=== PATIENT | female | born 1955 | race Caucasian/White ===

== ENCOUNTER 2017-01-03 08:48 | Inpatient (IN) | payer OTHER ==
[2017-01-03] VITALS (7 sets, daily range): BP systolic 129–155; BP diastolic 70–108
[~2017-01-03] VITALS: Ht 162.5 cm; Wt 79.9 kg
--- NOTE | ~2017-01-03 | PR ---
[place], [place] PROGRESS NOTE NAME: MICHELE RAMOS UNIT #: [id number] ROOM: 528 DOCTOR: PETRA CUMMINGS MD BIRTHDATE: [birth year] DOS: 01/05/2017 SUBJECTIVE: The patient was seen and examined. She is awake and alert. She is on room air. She feels well. She denies shortness of breath, nausea or vomiting. She is eating lunch. She states she is being discharged to home. PHYSICAL EXAMINATION: VITAL SIGNS: Temperature 98.2, pulse 76, respiratory rate 18, blood pressure 150/72. HEENT: Shows no JVD. LUNGS: Clear. HEART: Normal S1, S2. No rub, thrill or gallop. ABDOMEN: Soft, nontender. There is no organomegaly. EXTREMITIES: Had no edema. SKIN: Showed no rash. LABORATORY DATA: Sodium 135, potassium 3.5, CO2 of 20, BUN 11, creatinine 1.4, glucose of 90, calcium 7.3, phosphorus 3.1, magnesium 2.0. ASSESSMENT AND PLAN: 1. Acute kidney injury, which appears to be improving. Encourage oral intake. Replace electrolytes as needed. 2. Hypertension. The patient can continue/resume her home medications. 3. Vitamin D deficiency. Continue oral vitamin D. 4. Mild anemia. H and H are stable. 5. Diverticulitis. The patient has been on antibiotics. From renal standpoint, she is stable for discharge. We will sign off at this point. Please call with any questions. PETRA CUMMINGS MD CM:PNTRANS [phone] PETRA CUMMINGS MD 01/05/17 1322 interface
[~2017-01-03 08:48] MED LIST: ALBUTEROL0.09 MG/A2 INH; ALDACTONE50 MG PO; ANTIVERT25 MG PO; CELEBREX200 MG PO; CIPROFLOXACIN500 MG PO; FLEXERIL10 MG PO; FLONASE ALLERG9.9 ML NAS; HYDROCODONE BIT1 T11 PO; LEVAQUIN750 MG PO; LISINOPRIL-HCT1 EACH PO; Lopressor25 MG PO; METRONIDAZOLE500 MG PO; NAPROSYN500 MG PO; NOVAPLUS V0.09 MG/Ac IH; OMEPRAZOLE D/R20 MG PO; ONDANSETRON2 MG/ML IV; ONDANSETRON2 MG/ML PO; PREDNICOT20 MG PO; PREDNISONE20 MG PO; PRILOSEC10 MG PO; PROAIR HFA8.5 GM INH; VITAMIN B121000 MCG PO; VITAMIN D31000 UNIT PO; ZESTRIL40 MG PO; [UNRECOGNIZED DRUG - REMARK]
[2017-01-03 09:21] LABS: BASO % 0.5 % (0.0-1.0); EOS # 0.3 10*3/uL (0.0-0.4); EOS % 3.4 % (1.0-4.0); LYMPH # 1.2 10*3/uL (1.3-4.4); LYMPH % 16.5 % (27.0-41.0); MEAN CELL VOLUME 89.4 fl (81.0-99.0); MEAN CORPUSCULAR HGB 30.6 pg (27.0-31.0); MEAN CORPUSCULAR HGB CONC 34.2 g/dl (33.0-37.0); MEAN PLATELET VOLUME 8.6 fl (9.6-12.3); MONO # 0.7 10*3/uL (0.1-1.0); MONO % 9.1 % (3.0-9.0); NEUT # 5.1 10*3/uL (2.3-7.9); NEUT % 68.5 % (47.0-73.0); PLATELET COUNT AUTOMATED 262 10*3/uL (130-400); RED BLOOD COUNT 4.25 10*6/uL (4.10-5.10); RED CELL DISTRI WIDTH 12.6 % (0-14.5); WHITE BLOOD COUNT 7.4 10*3/uL (4.8-10.8)
--- NOTE | 2017-01-03 09:27 | NUR ---
PATIENT GIVEN A URINE CUP AND A STOOL SAMPLE CUP AND INSTRUCTED ON HOW TO PROVIDE THE SAMPLES, PATIENT STATES THAT SHE DOES NOT BELIEVE SHE CAN GO NOW, CALL LIGHT IN REACH OF THE PATIENT, CONTINUING TO MONITOR THE PATIENT. AGUSTINA FISH
[2017-01-03 09:38] LABS: ALBUMIN 3.1 gm/dl (3.1-4.5); CREATININE 2.29 mg/dL (0.55-1.02); POTASSIUM 3.1 mmol/L (3.5-5.1); TOTAL PROTEIN 7.8 gm/dL (6.4-8.2)
--- NOTE | 2017-01-03 10:08 | NUR ---
PATIENT TAKEN TO ROOM 502-2 PLACED IN THE BED AND CARE TRANSFERRED TO JANEEN NORMAN RN. AGUSTINA VERNON MADE AWARE OF THE PATIENT'S URINE NEEDING TO BE OBTAINED AND THE PATIENT'S STOOL SAMPLE. AGUSTINA FISH
[2017-01-03] MEDS ORDERED: IRON325 M3 PO (13:29)
[2017-01-03] MEDS ORDERED: SINGULAIR10 M1 PO (13:29)
[2017-01-03] MEDS ORDERED: LOPRESSOR50 M1 PO (13:32)
[2017-01-03] MEDS ORDERED: LEFLUNOMIDE10 M1 PO (13:36)
[2017-01-03] MEDS ORDERED: PREDNISONE5 MG PO (13:39)
[2017-01-03] MEDS ORDERED: LOPRESSOR25 MG PO (13:47)
[2017-01-03] MEDS ORDERED: FLOVENT HFA12 G1 INH (14:01)
--- NOTE | 2017-01-03 14:02 | NUR ---
UPDATED MED LIST WITH INFORMATION FROM PATIENT AND PHARMACY.
--- NOTE | 2017-01-03 14:46 | NUR ---
Time: 1129 A 61 year old FEMALE admitted to 5E under services of TOMASA NIETO DO. Pt. arrived via stretcher from ER. Chief complaint: DIARRHEA FOR 3 WEEKS. JOHN SIMS
--- NOTE | 2017-01-03 18:50 | NUR ---
DR. BIANCHI'S ANSWERING SERVICE NOTIFIED OF CONSULT.
[2017-01-04] VITALS: BP 126/70
--- NOTE | 2017-01-04 01:52 | NUR ---
24 HR chart check completed.
--- NOTE | 2017-01-04 07:53 | NUR ---
Shift chart check completed.
[2017-01-04 08:00] VITALS: BP 136/73
[2017-01-04 08:11] LABS: HEMATOCRIT 32.5 % (37.0-47.0); MEAN CORPUSCULAR HGB 30.5 pg (27.0-31.0); MEAN CORPUSCULAR HGB CONC 33.8 g/dl (33.0-37.0); MEAN PLATELET VOLUME 8.7 fl (9.6-12.3); PLATELET COUNT AUTOMATED 242 10*3/uL (130-400); RED BLOOD COUNT 3.61 10*6/uL (4.10-5.10); RED CELL DISTRI WIDTH 12.6 % (0-14.5); WHITE BLOOD COUNT 6.7 10*3/uL (4.8-10.8)
[2017-01-04 08:33] LABS: TOTAL CELLS COUNTED 100 #CELLS
[2017-01-04 08:34] LABS: PLATELET SUFFICIENCY NORMAL (NORMAL)
[2017-01-04 08:55] LABS: ALBUMIN 2.7 gm/dl (3.1-4.5); POTASSIUM 3.3 mmol/L (3.5-5.1)
[2017-01-04 09:00] LABS: VITAMIN D, 25-HYDROXY 44.8 ng/mL (30-100)
--- NOTE | 2017-01-04 09:00 | NUR ---
Religious Education Teacher in to talk to patient. Patient states lives at home with alone. There are few steps in the home. Physician: connie betancourt Pharmacy: Home health services: none Patient's level of ADLs: INDEPENDENT Patient has working utilities: all working DME: none Follow-up physician's appointment after d/c: will be made by hospitalist nurse director upon discharge Does patient want to access PORTAL?: no Discharge plan discussed with patient, patient lives at home alone, she states she is independent in adls and ambulation, drives, patient states she will be going back home and denies any home needs. LIS FLEMING\
[2017-01-04 09:05] LABS: CREATININE 1.68 mg/dL (0.55-1.02); FREE T4 1.31 ng/dl (0.76-1.46); PHOSPHOROUS 2.1 mg/dL (2.5-4.9); THYROID STIM HORMONE (HS) 0.253 uIU/ml (0.358-4.75); TOTAL PROTEIN 6.6 gm/dL (6.4-8.2)
--- NOTE | 2017-01-04 09:12 | NUR ---
DR. LAWRENCE NOTIFIED OF PATIENTS CALCIUM OF 6.8. NO NEW ORDERS
[2017-01-04 12:00] VITALS: BP 109/66
[2017-01-04 16:00] VITALS: BP 117/70
--- NOTE | 2017-01-04 17:26 | NUR ---
TWO FAILED ATTEMPTS ON IV SITE IN RIGHT FOREARM. ADDITIONAL STAFF MEMBER CALLED TO FIND ANOTHER SITE.
--- NOTE | 2017-01-04 17:28 | NUR ---
PATIENT REQUESTED NICOTROL INHALER, CALLED DR. CORDERO. SEE NEW ORDERS.
--- NOTE | 2017-01-04 17:42 | NUR ---
3 MORE ATTEMPTS BY 2 RN'S. 22 G PLACED IN LEFT FOREARM. PATIENT TOLERATED VERY WELL.
--- NOTE | 2017-01-04 18:42 | NUR ---
PATIENT C/O 6-8 LOOSE BOWEL MOVEMENTS BETWEEN 7A-7P. TOLERATING SOFT DIET WELL.
[2017-01-04 20:00] VITALS: BP 106/61
--- NOTE | 2017-01-04 20:14 | NUR ---
PATIENT IS LYING IN BED STILL HAVING COMPLAINTS OF DIARRHEA. PATIENT DENIES ANY PAIN, DISCOMFORT, OR SOB. PATIENT VERBALIZES THAT THEIR SYMPTOMS HAVE IMPROVED THROUGHOUT THE DAY AND STOOLS ARE BECOMING MORE FORMED, BUT STILL LOOSE. CALL LIGHT SYSTEM WAS REINFORCED. SEE SHIFT ASSESSMENT.
--- NOTE | 2017-01-04 21:52 | NUR ---
PATIENT IS RESTING COMFORTABLY. PATIENT DENIES ANY ABD CRAMPING OR EPISODES OF DIARRHEA AT THIS TIME. CALL LIGHT IS WITHIN REACH. WILL CONTINUE TO MONITOR.
[2017-01-05] VITALS: BP 108/64
[2017-01-05 05:56] LABS: BILIRUBIN NEGATIVE (NEGATIVE); BLOOD NEGATIVE (NEGATIVE); CLARITY SL CLOUDY (CLEAR); COLOR YELLOW (YELLOW); GLUCOSE NEGATIVE (NEGATIVE); KETONE NEGATIVE (NEGATIVE); LEUKO ESTERASE NEGATIVE (NEGATIVE); NITRITE NEGATIVE (NEGATIVE); PH 5.5 (5.0-9.0); SPECIFIC GRAVITY 1.025 (1.005-1.030); UROBILINOGEN 0.2 E.U./dl (0.2-1.0)
[2017-01-05 06:15] LABS: BACTERIA TRACE; MUCOUS TRACE
--- NOTE | 2017-01-05 06:19 | NUR ---
PATIENT IS RESTING COMFORTABLY IN BED. PATIENT WAS ABLE TO SLEEP THROUGHOUT THE NIGHT. PT REPORTS HAVING A FEW EPISODES OF DIARRHEA THROUGHOUT THE NIGHT, BUT DENIES ANY N/V. PATIENT CAN AMBULATE INDEPENDENTLY AND HAS BEEN COOPERATIVE THROUGHOUT THE NIGHT. CALL LIGHT IS WITHIN REACH. PATIENT HAS NO FURTHER REQUESTS AT THIS TIME.
[2017-01-05 07:03] LABS: POTASSIUM 3.5 mmol/L (3.5-5.1)
[2017-01-05 07:09] LABS: CREATININE 1.43 mg/dL (0.55-1.02); PHOSPHOROUS 3.1 mg/dL (2.5-4.9)
--- NOTE | 2017-01-05 07:49 | NUR ---
Shift chart check completed.
--- NOTE | 2017-01-05 07:59 | NUR ---
PT IS REFUSING BREATHING TXS. SHE STATES THAT SHE DOES NOT TAKE THEM AT HOME AND DOES NOT FEEL LIKE SHE NEEDS THEM HERE. LUNGS SOUND DIMINSHED BUT CLEAR. SPO2 IS 96% ON ROOM AIR.
[2017-01-05 08:00] VITALS: BP 150/72
[2017-01-05] MEDS ORDERED: 'CIPRO500 M1 PO (11:50)
[2017-01-05] MEDS ORDERED: FLAGYL500 MG PO (11:50)
--- NOTE | 2017-01-05 14:28 | NUR ---
Discharge instructions reviewed with patient/family. Patient receptive and verbalizes understanding. Follow-up care arranged. Written instructions given to patient/family. Patient ambulated from unit with all of her belongings and family members. DEBORAH PARK
== END 2017-01-05 14:28 | disposition home or self-care (01) | DRG 871 ==
LOC: ED 08:48 → 5E 09:55 → EDHOLD 09:55 → 5E 10:03
PROVIDERS: Emergency Medicine; Internal Medicine; Student in an Organized Health Care Education/Training Program; ADMIT Internal Medicine
DX: A41.9 Sepsis, unspecified organism (principal); N17.0 Acute kidney failure with tubular necrosis; E83.39 Other disorders of phosphorus metabolism; K57.32 Diverticulitis of large intestine without perforation or abscess without bleeding; E83.42 Hypomagnesemia; K50.00 Crohn's disease of small intestine without complications; R65.20 Severe sepsis without septic shock; E86.0 Dehydration; J44.9 Chronic obstructive pulmonary disease, unspecified; D72.810 Lymphocytopenia; E87.6 Hypokalemia; M06.9 Rheumatoid arthritis, unspecified; I10 Essential (primary) hypertension; E78.5 Hyperlipidemia, unspecified; K21.9 Gastro-esophageal reflux disease without esophagitis; K52.9 Noninfective gastroenteritis and colitis, unspecified; F17.210 Nicotine dependence, cigarettes, uncomplicated; D64.9 Anemia, unspecified; J30.2 Other seasonal allergic rhinitis; E53.8 Deficiency of other specified B group vitamins; Z88.2 Allergy status to sulfonamides; Z79.899 Other long term (current) drug therapy; Z71.6 Tobacco abuse counseling; Z98.51 Tubal ligation status; Z87.11 Personal history of peptic ulcer disease; Z90.49 Acquired absence of other specified parts of digestive tract; Z82.0 Family history of epilepsy and other diseases of the nervous system; Z82.49 Family history of ischemic heart disease and other diseases of the circulatory system; Z79.51 Long term (current) use of inhaled steroids

== ENCOUNTER → 2017-03-19 | Outpatient (CLI) | payer OTHER ==
[~2017-03-19] MED LIST changes: +'CIPRO500 M1 PO; +FLAGYL500 MG PO; +FLOVENT HFA12 G1 INH; +IRON325 M3 PO; +LEFLUNOMIDE10 M1 PO; +LOPRESSOR25 MG PO; +LOPRESSOR50 M1 PO; +PREDNISONE5 MG PO; +SINGULAIR10 M1 PO
[2017-03-21 17:07] LABS: FATS, NEUTRAL Normal (.); FATS, TOTAL Normal (.)
== END | disposition home or self-care (01) ==
LOC: LAB 12:40
PROVIDERS: Nurse Practitioner Family
DX: R19.7 Diarrhea, unspecified (principal)

== ENCOUNTER 2018-05-13 09:59 | Inpatient (IN) | payer OTHER ==
[~2018-05-13] VITALS: Ht 162.5 cm; Wt 86.9 kg
[2018-05-13 10:02] VITALS: BP 91/67
[2018-05-13 10:15] VITALS: BP 98/50
[2018-05-13 10:38] LABS: BASO % 0.1 % (0.0-1.0); EOS % 0.5 % (1.0-4.0); HEMATOCRIT 37.2 % (37.0-47.0); HEMOGLOBIN 13.1 g/dl (12.0-16.0); LYMPH # 0.7 10*3/uL (1.3-4.4); LYMPH % 8.6 % (27.0-41.0); MEAN CELL VOLUME 87.5 fl (81.0-99.0); MEAN CORPUSCULAR HGB 30.8 pg (27.0-31.0); MEAN CORPUSCULAR HGB CONC 35.2 g/dl (33.0-37.0); MEAN PLATELET VOLUME 8.7 fl (9.6-12.3); MONO # 0.8 10*3/uL (0.1-1.0); NEUT # 6.6 10*3/uL (2.3-7.9); NEUT % 80.3 % (47.0-73.0); PLATELET COUNT AUTOMATED 164 10*3/uL (130-400); RED BLOOD COUNT 4.25 10*6/uL (4.10-5.10); RED CELL DISTRI WIDTH 13.6 % (0-14.5); WHITE BLOOD COUNT 8.2 10*3/uL (4.8-10.8)
--- NOTE | 2018-05-13 11:03 | NUR ---
PT UNWILLING TO ATTEMPT TO PROVIDE URINE SPECIMEN AND REQUESTS PAIN MEDICATION FOR ARTHRITIS. PROVIDER MADE AWARE.
[2018-05-13 11:04] VITALS: BP 96/48
[2018-05-13 11:08] LABS: ALBUMIN 3.1 gm/dl (3.1-4.5); CREATININE 6.83 mg/dL (0.55-1.02); POTASSIUM 3.7 mmol/L (3.5-5.1); TOTAL PROTEIN 7.2 gm/dL (6.4-8.2)
[2018-05-13 11:46] LABS: BILIRUBIN NEGATIVE (NEGATIVE); BLOOD NEGATIVE (NEGATIVE); CLARITY SL CLOUDY (CLEAR); COLOR YELLOW (YELLOW); GLUCOSE NEGATIVE (NEGATIVE); KETONE NEGATIVE (NEGATIVE); LEUKO ESTERASE NEGATIVE (NEGATIVE); NITRITE NEGATIVE (NEGATIVE); PH 5.5 (5.0-9.0); UROBILINOGEN 0.2 E.U./dl (0.2-1.0)
[2018-05-13 12:05] LABS: BACTERIA 3+
--- NOTE | 2018-05-13 12:40 | NUR ---
A 62, admitted to , under the services of ARI James DO with a diagnosis of Acute Renal Failure. Chief complaint is General Weakness. Patient arrived via stretcher from ER. Monitor applied. Initial assessment completed. Vital signs taken and recorded. ARI JAMES DO notified of admission to the unit. Orders received. See assessment for past medical history, medications and allergies. Patient and/or family oriented to unit. [address] visitation policy reviewed. Clothing/patient valuable form completed. DEBORAH PARK
[2018-05-13] MEDS ORDERED: CLARITIN10 MG PO (13:15)
--- NOTE | 2018-05-13 13:55 | NUR ---
[place] given per patient request for c/o arthritic pain and generalized "all over acheyness." Will monitor.
--- NOTE | 2018-05-13 14:04 | NUR ---
Left a message with Candy at Dr. Olivera office regarding consult for Acute Renal Failure. Physician to follow up at bedside.
--- NOTE | 2018-05-13 14:38 | NUR ---
Notified Dr. Gill that patients med rec is completed and that patients CT scan results are up.
[2018-05-13 16:00] VITALS: BP 90/43
--- NOTE | 2018-05-13 18:43 | NUR ---
PATIENT MEDICATED WITH NORCO AT THIS TIME PER ORDER FOR COMPLAINTS OF PAIN IN JOINTS T/O BODY 10/18. WILL MONITOR.
[2018-05-13 20:00] VITALS: BP 96/48
--- NOTE | 2018-05-13 20:00 | NUR ---
PER PATIENT, PRN MED WAS EFFECTIVE FOR PAIN. NO NEEDS AT THIS TIME.
[2018-05-14] VITALS: BP 88/48
[2018-05-14 06:10] LABS: BASO % 0.2 % (0.0-1.0); EOS % 0.1 % (1.0-4.0); HEMATOCRIT 34.5 % (37.0-47.0); HEMOGLOBIN 11.6 g/dl (12.0-16.0); LYMPH % 10.5 % (27.0-41.0); MEAN CELL VOLUME 89.4 fl (81.0-99.0); MEAN CORPUSCULAR HGB 30.1 pg (27.0-31.0); MEAN CORPUSCULAR HGB CONC 33.6 g/dl (33.0-37.0); MEAN PLATELET VOLUME 9.4 fl (9.6-12.3); MONO # 0.7 10*3/uL (0.1-1.0); MONO % 7.3 % (3.0-9.0); NEUT # 7.7 10*3/uL (2.3-7.9); NEUT % 81.5 % (47.0-73.0); PLATELET COUNT AUTOMATED 173 10*3/uL (130-400); RED BLOOD COUNT 3.86 10*6/uL (4.10-5.10); RED CELL DISTRI WIDTH 13.7 % (0-14.5); WHITE BLOOD COUNT 9.4 10*3/uL (4.8-10.8)
[2018-05-14 06:31] LABS: ALBUMIN 2.6 gm/dl (3.1-4.5); CREATININE 4.39 mg/dL (0.55-1.02); PHOSPHOROUS 5.6 mg/dL (2.5-4.9); POTASSIUM 3.9 mmol/L (3.5-5.1); TOTAL PROTEIN 6.6 gm/dL (6.4-8.2)
[2018-05-14 06:37] LABS: THYROID STIM HORMONE (HS) 0.162 uIU/ml (0.358-4.75)
[2018-05-14 06:51] LABS: ACT PARTIAL THROMBO TIME 30.5 SECONDS (20.8-31.5)
[2018-05-14 07:28] LABS: VITAMIN D, 25-HYDROXY 33.8 ng/mL (30-100)
[2018-05-14 08:00] VITALS: BP 82/42
[2018-05-14 08:50] VITALS: BP 86/44
--- NOTE | 2018-05-14 08:51 | NUR ---
MANUAL BLOOD PRESSURE 86/44, PT IS ASYMPTOMATIC. NOTIFIED DR. Colleen MURPHY
--- NOTE | 2018-05-14 09:00 | NUR ---
Roll On Worker in to talk to patient. Patient states lives at home with alone. There are few steps in the home. Physician: connie betancourt Pharmacy: [facility] health services: none Patient's level of ADLs: INDEPENDENT Patient has working utilities: all working DME: none Follow-up physician's appointment after d/c: will be made by hospitalist nurse director upon discharge Does patient want to access PORTAL?: no Discharge plan discussed with patient, patient lives at home alone, she is independent in adls and ambualtion, works, drives, patient states she will be going home when able and denies any home needs. LIS FLEMING
--- NOTE | 2018-05-14 10:45 | NUR ---
PHYSICAL THERAPY PAtient reports She has no PT needs. PAtient reports She is 100 % (I) WITH ALL MOBILITY AND FEELING 100 % BETTER THEN UPON ADMITT. Thank you for this referral. Awilda Reddy,PT
[2018-05-14 12:00] VITALS: BP 86/42
[2018-05-14 16:00] VITALS: BP 131/50
[2018-05-14 20:00] VITALS: BP 88/46
[2018-05-15] VITALS: BP 92/76
[2018-05-15 06:28] LABS: BASO % 0.2 % (0.0-1.0); EOS # 0.1 10*3/uL (0.0-0.4); EOS % 0.9 % (1.0-4.0); HEMATOCRIT 32.4 % (37.0-47.0); HEMOGLOBIN 10.6 g/dl (12.0-16.0); LYMPH # 0.9 10*3/uL (1.3-4.4); LYMPH % 15.5 % (27.0-41.0); MEAN CELL VOLUME 90.3 fl (81.0-99.0); MEAN CORPUSCULAR HGB 29.5 pg (27.0-31.0); MEAN CORPUSCULAR HGB CONC 32.7 g/dl (33.0-37.0); MEAN PLATELET VOLUME 9.4 fl (9.6-12.3); MONO # 0.4 10*3/uL (0.1-1.0); MONO % 7.6 % (3.0-9.0); NEUT # 4.2 10*3/uL (2.3-7.9); NEUT % 75.4 % (47.0-73.0); PLATELET COUNT AUTOMATED 157 10*3/uL (130-400); RED BLOOD COUNT 3.59 10*6/uL (4.10-5.10); RED CELL DISTRI WIDTH 14.1 % (0-14.5); WHITE BLOOD COUNT 5.5 10*3/uL (4.8-10.8)
[2018-05-15 06:57] LABS: ALBUMIN 2.3 gm/dl (3.1-4.5); CREATININE 2.47 mg/dL (0.55-1.02); PHOSPHOROUS 4.5 mg/dL (2.5-4.9); POTASSIUM 3.6 mmol/L (3.5-5.1); TOTAL PROTEIN 6.4 gm/dL (6.4-8.2)
[2018-05-15 08:00] VITALS: BP 129/77
--- NOTE | 2018-05-15 09:00 | NUR ---
case management visits with patient, patient states she will be going home when able and denies any home needs
[2018-05-15 12:00] VITALS: BP 140/67
[2018-05-15] MEDS ORDERED: PREDNISONE5 MG PO (12:49)
[2018-05-15] MEDS ORDERED: B12100 MC1 PO (12:49)
--- NOTE | 2018-05-15 15:10 | NUR ---
Discharge instructions reviewed with patient/family. Patient receptive and verbalizes understanding. Follow-up care arranged. Written instructions given to patient/family. [place] DISCONTINUED. SCRIPT GIVEN. PATIENT AMBULATORY OFF FLOOR. LOUIE SCHULTZ
== END 2018-05-15 15:40 | disposition home or self-care (01) | DRG 682 ==
LOC: ED 09:59 → 4E 12:06 → EDHOLD 12:06 → 4E 12:29
PROVIDERS: Internal Medicine; Nurse Practitioner Family; ADMIT Internal Medicine
DX: N17.0 Acute kidney failure with tubular necrosis (principal); E43 Unspecified severe protein-calorie malnutrition; E87.1 Hypo-osmolality and hyponatremia; E87.2 Acidosis; E86.0 Dehydration; I95.9 Hypotension, unspecified; R73.9 Hyperglycemia, unspecified; R82.71 Bacteriuria; Z71.6 Tobacco abuse counseling; I10 Essential (primary) hypertension; M06.9 Rheumatoid arthritis, unspecified; K27.9 Peptic ulcer, site unspecified, unspecified as acute or chronic, without hemorrhage or perforation; K57.90 Diverticulosis of intestine, part unspecified, without perforation or abscess without bleeding; E78.5 Hyperlipidemia, unspecified; E53.8 Deficiency of other specified B group vitamins; N28.1 Cyst of kidney, acquired; K21.9 Gastro-esophageal reflux disease without esophagitis; J30.2 Other seasonal allergic rhinitis; F17.210 Nicotine dependence, cigarettes, uncomplicated; J44.9 Chronic obstructive pulmonary disease, unspecified; K58.9 Irritable bowel syndrome, unspecified; R94.6 Abnormal results of thyroid function studies; E66.9 Obesity, unspecified; D64.9 Anemia, unspecified; E83.42 Hypomagnesemia; E83.39 Other disorders of phosphorus metabolism; E87.8 Other disorders of electrolyte and fluid balance, not elsewhere classified; Z88.2 Allergy status to sulfonamides; Z98.51 Tubal ligation status; Z90.49 Acquired absence of other specified parts of digestive tract; Z82.49 Family history of ischemic heart disease and other diseases of the circulatory system; Z80.9 Family history of malignant neoplasm, unspecified; Z81.1 Family history of alcohol abuse and dependence; Z81.8 Family history of other mental and behavioral disorders; Z79.899 Other long term (current) drug therapy; Z68.32 Body mass index [BMI] 32.0-32.9, adult

== ENCOUNTER → 2018-05-22 | Outpatient (CLI) | payer OTHER ==
[~2018-05-22] MED LIST changes: +B12100 MC1 PO; +CLARITIN10 MG PO
[2018-05-22 14:44] LABS: ALBUMIN 3.2 gm/dl (3.1-4.5); CREATININE 1.5 mg/dL (0.55-1.02); PHOSPHOROUS 3.1 mg/dL (2.5-4.9); POTASSIUM 3.8 mmol/L (3.5-5.1)
== END | disposition home or self-care (01) ==
LOC: LAB 13:49
PROVIDERS: Internal Medicine
DX: N17.0 Acute kidney failure with tubular necrosis (principal)

== ENCOUNTER 2018-11-28 18:31 | Emergency (ER) | payer OTHER ==
[~2018-11-28] VITALS: Ht 160 cm; Wt 88.5 kg
[2018-11-28 18:31] VITALS: BP 141/71
[2018-11-28] MEDS ORDERED: MEDROL DOSEPAK4 MG PO (20:31)
[2018-11-28] MEDS ORDERED: DOXYCYCLINE100 M3 PO (20:31)
== END 2018-11-28 20:43 | disposition home or self-care (01) ==
LOC: ED 18:31
DX: J18.9 Pneumonia, unspecified organism (principal); M06.9 Rheumatoid arthritis, unspecified; J44.9 Chronic obstructive pulmonary disease, unspecified; K21.9 Gastro-esophageal reflux disease without esophagitis; E66.9 Obesity, unspecified; I10 Essential (primary) hypertension; F17.210 Nicotine dependence, cigarettes, uncomplicated; Z88.2 Allergy status to sulfonamides; Z79.899 Other long term (current) drug therapy

== ENCOUNTER 2019-02-22 12:24 | Emergency (ER) | payer OTHER ==
[~2019-02-22] VITALS: Ht 162.5 cm; Wt 88.9 kg
[~2019-02-22 12:24] MED LIST changes: +DOXYCYCLINE100 M3 PO; +MEDROL DOSEPAK4 MG PO
[2019-02-22 12:26] VITALS: BP 186/87
[2019-02-22 13:09] LABS: BILIRUBIN NEGATIVE (NEGATIVE); BLOOD NEGATIVE (NEGATIVE); CLARITY SL CLOUDY (CLEAR); COLOR YELLOW (YELLOW); GLUCOSE NEGATIVE (NEGATIVE); KETONE NEGATIVE (NEGATIVE); LEUKO ESTERASE NEGATIVE (NEGATIVE); NITRITE NEGATIVE (NEGATIVE); PH 6.5 (5.0-9.0); SPECIFIC GRAVITY <= 1.005 (1.005-1.030); UROBILINOGEN 0.2 E.U./dl (0.2-1.0)
[2019-02-22 13:15] LABS: MUCOUS 1+; WBC 0-2 wbc/hpf (0-5)
[2019-02-22 13:19] LABS: BASO % 0.4 % (0.0-1.0); EOS # 0.2 10*3/uL (0.0-0.4); EOS % 3.5 % (1.0-4.0); HEMATOCRIT 39.9 % (37.0-47.0); LYMPH # 0.6 10*3/uL (1.3-4.4); LYMPH % 10.4 % (27.0-41.0); MEAN CELL VOLUME 93.7 fl (81.0-99.0); MEAN CORPUSCULAR HGB 30.5 pg (27.0-31.0); MEAN CORPUSCULAR HGB CONC 32.6 g/dl (33.0-37.0); MEAN PLATELET VOLUME 8.4 fl (9.6-12.3); MONO # 0.5 10*3/uL (0.1-1.0); MONO % 8.6 % (3.0-9.0); NEUT # 4.3 10*3/uL (2.3-7.9); NEUT % 76.2 % (47.0-73.0); PLATELET COUNT AUTOMATED 212 10*3/uL (130-400); RED BLOOD COUNT 4.26 10*6/uL (4.10-5.10); RED CELL DISTRI WIDTH 12.9 % (0-14.5); WHITE BLOOD COUNT 5.7 10*3/uL (4.8-10.8)
[2019-02-22 13:30] LABS: INTERNATIONAL NORM RATIO 0.9 (2.0-3.5)
[2019-02-22 13:47] LABS: ALBUMIN 3.2 gm/dl (3.1-4.5); ALKALINE PHOSPHATASE 70 U/L (45-117); BUN 18 mg/dl (7-24); CHLORIDE 107 mmol/L (98-107); CREATININE 1.59 mg/dL (0.55-1.02); POTASSIUM 3.7 mmol/L (3.5-5.1); SGOT/AST 17 IU/L (3-35); SGPT/ALT 20 U/L (12-78); SODIUM 139 mmol/L (136-145)
[2019-02-22 13:51] LABS: TROPONIN I < 0.015 ng/ml (<0.045)
[2019-02-22] MEDS ORDERED: TYLENOL325 M1 PO (15:18)
[2019-02-22] MEDS ORDERED: AUGMENTIN 875875 MG PO (15:18)
[2019-02-22] MEDS ORDERED: POLYSPORIN OINT15 GM T (15:18)
[2019-02-22] MEDS ORDERED: CYCLOBENZAPRINE10 MG PO (15:18)
== END 2019-02-22 15:45 | disposition home or self-care (01) ==
LOC: ED 12:24
PROVIDERS: Emergency Medicine
DX: S51.002A Unspecified open wound of left elbow, initial encounter (principal); M54.41 Lumbago with sciatica, right side; I12.9 Hypertensive chronic kidney disease with stage 1 through stage 4 chronic kidney disease, or unspecified chronic kidney disease; N18.3 Chronic kidney disease, stage 3 (moderate); L03.114 Cellulitis of left upper limb; M54.2 Cervicalgia; R51 Headache; E66.9 Obesity, unspecified; M06.9 Rheumatoid arthritis, unspecified; J44.9 Chronic obstructive pulmonary disease, unspecified; K21.9 Gastro-esophageal reflux disease without esophagitis; E78.5 Hyperlipidemia, unspecified; F17.210 Nicotine dependence, cigarettes, uncomplicated; Z88.2 Allergy status to sulfonamides; Z88.8 Allergy status to other drugs, medicaments and biological substances; Z79.899 Other long term (current) drug therapy; Z79.2 Long term (current) use of antibiotics; Z68.30 Body mass index [BMI] 30.0-30.9, adult; X58.XXXA Exposure to other specified factors, initial encounter; Y93.89 Activity, other specified; Y92.89 Other specified places as the place of occurrence of the external cause; Y99.8 Other external cause status

== ENCOUNTER 2020-07-29 11:57 | Emergency (ER) | payer OTHER ==
[~2020-07-29] VITALS: Ht 160 cm; Wt 84.8 kg
[~2020-07-29 11:57] MED LIST changes: +AUGMENTIN 875875 MG PO; +CYCLOBENZAPRINE10 MG PO; +POLYSPORIN OINT15 GM T; +TYLENOL325 M1 PO
[2020-07-29] MEDS ORDERED: METHOCARBAMOL500 M1 PO (15:48)
[2020-07-31] MEDS ORDERED: TRIAMTERENE-HC1 EACH PO (18:11)
[2020-08-01] MEDS ORDERED: OMNICEF300 MG PO (13:25)
[2020-08-01] MEDS ORDERED: ZITHROMAX500 MG PO (13:25)
[2020-08-01] MEDS ORDERED: PREDNISONE10 MG PO (13:25)
[2020-08-01] MEDS ORDERED: COLCHICINE0.6 M1 PO (13:26)
[2020-08-01] MEDS ORDERED: PREDNISONE5 MG PO (13:28)
== END 2020-07-29 16:48 | disposition home or self-care (01) ==
LOC: ED 11:57
DX: S29.012A Strain of muscle and tendon of back wall of thorax, initial encounter (principal); F17.200 Nicotine dependence, unspecified, uncomplicated; Z88.2 Allergy status to sulfonamides; Z88.8 Allergy status to other drugs, medicaments and biological substances; Z79.899 Other long term (current) drug therapy; Z98.51 Tubal ligation status; Z98.890 Other specified postprocedural states; X50.0XXA Overexertion from strenuous movement or load, initial encounter; Y93.89 Activity, other specified; Y92.89 Other specified places as the place of occurrence of the external cause; Y99.8 Other external cause status

== ENCOUNTER 2020-08-15 08:35 | Inpatient (IN) | payer OTHER ==
[~2020-08-15] VITALS: Ht 160 cm; Wt 87.3 kg
[2020-08-15] VITALS (9 sets, daily range): BP systolic 142–201; BP diastolic 69–101
[~2020-08-15 08:35] MED LIST changes: +COLCHICINE0.6 M1 PO; +METHOCARBAMOL500 M1 PO; +OMNICEF300 MG PO; +PREDNISONE10 MG PO; +TRIAMTERENE-HC1 EACH PO; +ZITHROMAX500 MG PO
[2020-08-15 09:13] LABS: BASO % 0.6 % (0.0-1.0); EOS # 0.1 10*3/uL (0.0-0.4); EOS % 2.4 % (1.0-4.0); LYMPH # 0.6 10*3/uL (1.3-4.4); LYMPH % 10.8 % (27.0-41.0); MEAN CELL VOLUME 94.6 fl (81.0-99.0); MEAN CORPUSCULAR HGB 29.3 pg (27.0-31.0); MEAN PLATELET VOLUME 8.7 fl (9.6-12.3); MONO # 0.4 10*3/uL (0.1-1.0); MONO % 7.8 % (3.0-9.0); NEUT # 4.2 10*3/uL (2.3-7.9); PLATELET COUNT AUTOMATED 221 10*3/uL (130-400); RED BLOOD COUNT 4.44 10*6/uL (4.10-5.10); RED CELL DISTRI WIDTH 14.9 % (0-14.5); WHITE BLOOD COUNT 5.4 10*3/uL (4.8-10.8)
[2020-08-15 09:30] LABS: ALBUMIN 3.3 gm/dl (3.1-4.5); ALKALINE PHOSPHATASE 75 U/L (45-117); BUN 22 mg/dl (7-24); CHLORIDE 107 mmol/L (98-107); LIPASE 83 U/L (73-393); POTASSIUM 3.9 mmol/L (3.5-5.1); SGOT/AST 23 IU/L (3-35); SGPT/ALT 34 U/L (12-78); SODIUM 133 mmol/L (136-145); TOTAL PROTEIN 7.1 gm/dL (6.4-8.2)
[2020-08-15 09:33] LABS: TROPONIN I < 0.015 ng/ml (<0.045)
[2020-08-15] MEDS ORDERED: METHOCARBAMOL500 M1 PO (10:46)
[2020-08-16] VITALS: BP 175/83
[2020-08-16 06:24] LABS: BASO % 0.2 % (0.0-1.0); EOS # 0.2 10*3/uL (0.0-0.4); EOS % 3.2 % (1.0-4.0); HEMATOCRIT 40.5 % (37.0-47.0); LYMPH # 1.5 10*3/uL (1.3-4.4); LYMPH % 31.6 % (27.0-41.0); MEAN CELL VOLUME 94.8 fl (81.0-99.0); MEAN CORPUSCULAR HGB CONC 30.6 g/dl (33.0-37.0); MEAN PLATELET VOLUME 8.6 fl (9.6-12.3); MONO # 0.4 10*3/uL (0.1-1.0); MONO % 8.2 % (3.0-9.0); NEUT # 2.7 10*3/uL (2.3-7.9); NEUT % 56.4 % (47.0-73.0); PLATELET COUNT AUTOMATED 220 10*3/uL (130-400); RED BLOOD COUNT 4.27 10*6/uL (4.10-5.10); RED CELL DISTRI WIDTH 14.9 % (0-14.5); WHITE BLOOD COUNT 4.8 10*3/uL (4.8-10.8)
[2020-08-16 06:26] LABS: ACT PARTIAL THROMBO TIME 25.6 SECONDS (20.0-32.1)
[2020-08-16 06:32] LABS: POTASSIUM 3.8 mmol/L (3.5-5.1)
[2020-08-16 06:41] LABS: ALBUMIN 3.2 gm/dl (3.1-4.5); CREATININE 1.8 mg/dL (0.55-1.02); TOTAL PROTEIN 6.9 gm/dL (6.4-8.2)
[2020-08-16 12:00] VITALS: BP 105/89
[2020-08-16] MEDS ORDERED: COLCHICINE0.6 M1 PO (13:38)
[2020-08-16] MEDS ORDERED: TRAMADOL HCL50 MG PO (13:38)
== END 2020-08-16 14:54 | disposition home or self-care (01) | DRG 145 ==
LOC: ED 08:35 → 5E 10:18 → EDHOLD 10:18 → 5E 19:38
PROVIDERS: Family Medicine; Internal Medicine; ADMIT Internal Medicine; ATTEND Internal Medicine
DX: R07.81 Pleurodynia (principal); I16.1 Hypertensive emergency; E87.1 Hypo-osmolality and hyponatremia; E44.1 Mild protein-calorie malnutrition; M06.9 Rheumatoid arthritis, unspecified; K27.9 Peptic ulcer, site unspecified, unspecified as acute or chronic, without hemorrhage or perforation; N18.32 Chronic kidney disease, stage 3b; R73.9 Hyperglycemia, unspecified; E78.5 Hyperlipidemia, unspecified; K76.0 Fatty (change of) liver, not elsewhere classified; K21.9 Gastro-esophageal reflux disease without esophagitis; E66.9 Obesity, unspecified; J44.9 Chronic obstructive pulmonary disease, unspecified; G89.29 Other chronic pain; K58.9 Irritable bowel syndrome, unspecified; M54.9 Dorsalgia, unspecified; K57.90 Diverticulosis of intestine, part unspecified, without perforation or abscess without bleeding; I12.9 Hypertensive chronic kidney disease with stage 1 through stage 4 chronic kidney disease, or unspecified chronic kidney disease; F17.218 Nicotine dependence, cigarettes, with other nicotine-induced disorders; Z71.6 Tobacco abuse counseling; Z88.2 Allergy status to sulfonamides; Z98.51 Tubal ligation status; Z81.8 Family history of other mental and behavioral disorders; Z81.1 Family history of alcohol abuse and dependence; Z82.49 Family history of ischemic heart disease and other diseases of the circulatory system; Z80.8 Family history of malignant neoplasm of other organs or systems; Z90.49 Acquired absence of other specified parts of digestive tract; Z79.899 Other long term (current) drug therapy; Z79.52 Long term (current) use of systemic steroids; Z68.32 Body mass index [BMI] 32.0-32.9, adult; N17.0 Acute kidney failure with tubular necrosis

== ENCOUNTER → 2023-04-01 | Outpatient (CLI) | payer OTHER, MEDICAID ==
[~2023-04-01] MED LIST changes: +AMLODIPINE BESYL5 MG PO; +BISACODYL10 MG R; +ELIQUIS5 M1 PO; +Ipratropium Brom3 ML NEB; +METOPROLOL SUCC50 M1 PO; +MIRTAZAPINE15 M2 PO; +NAMENDA-5 PO; +ONDANSETRON4 MG SL; +OXYCODONE-ACET1 EACH PO; +RIVASTIGMINE1 EACH T; +ROSUVASTATIN CA20 MG PO; +TOPCARE OMEPRAZ20 MG PO; +TRAMADOL HCL50 MG PO
== END | disposition home or self-care (01) ==
LOC: ORTHO 00:30
PROVIDERS: ATTEND Orthopaedic Surgery
DX: S42.221D 2-part displaced fracture of surgical neck of right humerus, subsequent encounter for fracture with routine healing (principal); X58.XXXD Exposure to other specified factors, subsequent encounter

== ENCOUNTER → 2023-04-19 | Outpatient (CLI) | payer OTHER, MEDICAID | END | disposition home or self-care (01) | LOC: ORTHO 01:15 | PROVIDERS: ATTEND Orthopaedic Surgery | DX: S42.222D 2-part displaced fracture of surgical neck of left humerus, subsequent encounter for fracture with routine healing (principal); X58.XXXD Exposure to other specified factors, subsequent encounter ==

== ENCOUNTER → 2023-05-28 | Outpatient (CLI) | payer OTHER, MEDICAID | END | disposition home or self-care (01) | LOC: CT 01:23 | PROVIDERS: ATTEND Internal Medicine Critical Care Medicine | DX: J43.9 Emphysema, unspecified (principal); J98.11 Atelectasis; J45.50 Severe persistent asthma, uncomplicated; R22.2 Localized swelling, mass and lump, trunk; I25.10 Atherosclerotic heart disease of native coronary artery without angina pectoris; K44.9 Diaphragmatic hernia without obstruction or gangrene; Z68.33 Body mass index [BMI] 33.0-33.9, adult; Z87.891 Personal history of nicotine dependence ==

== ENCOUNTER → 2023-05-28 | Outpatient (CLI) | payer OTHER, MEDICAID | END | disposition home or self-care (01) | LOC: WOUNDCARE 01:45 | PROVIDERS: ATTEND Nurse Practitioner Family | DX: L89.893 Pressure ulcer of other site, stage 3 (principal); S51.002D Unspecified open wound of left elbow, subsequent encounter; L97.822 Non-pressure chronic ulcer of other part of left lower leg with fat layer exposed; L97.512 Non-pressure chronic ulcer of other part of right foot with fat layer exposed; J44.9 Chronic obstructive pulmonary disease, unspecified; I11.0 Hypertensive heart disease with heart failure; I50.9 Heart failure, unspecified; K58.9 Irritable bowel syndrome, unspecified; I73.9 Peripheral vascular disease, unspecified; I48.91 Unspecified atrial fibrillation; K57.90 Diverticulosis of intestine, part unspecified, without perforation or abscess without bleeding; K21.9 Gastro-esophageal reflux disease without esophagitis; M06.9 Rheumatoid arthritis, unspecified; Z87.891 Personal history of nicotine dependence; Z98.51 Tubal ligation status; Z90.49 Acquired absence of other specified parts of digestive tract; Z79.899 Other long term (current) drug therapy; X58.XXXD Exposure to other specified factors, subsequent encounter ==

== ENCOUNTER → 2023-06-04 | Outpatient (CLI) | payer OTHER, MEDICAID | END | disposition home or self-care (01) | LOC: WOUNDCARE 01:18 | PROVIDERS: ATTEND Nurse Practitioner Family | DX: L89.893 Pressure ulcer of other site, stage 3 (principal); S51.002D Unspecified open wound of left elbow, subsequent encounter; L97.822 Non-pressure chronic ulcer of other part of left lower leg with fat layer exposed; L97.512 Non-pressure chronic ulcer of other part of right foot with fat layer exposed; M79.671 Pain in right foot; J44.9 Chronic obstructive pulmonary disease, unspecified; I11.0 Hypertensive heart disease with heart failure; I50.9 Heart failure, unspecified; K58.9 Irritable bowel syndrome, unspecified; I73.9 Peripheral vascular disease, unspecified; I48.91 Unspecified atrial fibrillation; K57.90 Diverticulosis of intestine, part unspecified, without perforation or abscess without bleeding; K21.9 Gastro-esophageal reflux disease without esophagitis; M06.9 Rheumatoid arthritis, unspecified; Z87.891 Personal history of nicotine dependence; Z98.51 Tubal ligation status; Z90.49 Acquired absence of other specified parts of digestive tract; Z79.899 Other long term (current) drug therapy; X58.XXXD Exposure to other specified factors, subsequent encounter ==

== ENCOUNTER → 2023-06-11 | Outpatient (CLI) | payer OTHER, MEDICAID | END | disposition home or self-care (01) | LOC: WOUNDCARE 02:14 | PROVIDERS: ATTEND Nurse Practitioner Family | DX: S51.002D Unspecified open wound of left elbow, subsequent encounter (principal); L89.893 Pressure ulcer of other site, stage 3; L97.822 Non-pressure chronic ulcer of other part of left lower leg with fat layer exposed; L97.512 Non-pressure chronic ulcer of other part of right foot with fat layer exposed; M79.671 Pain in right foot; J44.9 Chronic obstructive pulmonary disease, unspecified; I11.0 Hypertensive heart disease with heart failure; I50.9 Heart failure, unspecified; K58.9 Irritable bowel syndrome, unspecified; I73.9 Peripheral vascular disease, unspecified; I48.91 Unspecified atrial fibrillation; K57.90 Diverticulosis of intestine, part unspecified, without perforation or abscess without bleeding; K21.9 Gastro-esophageal reflux disease without esophagitis; M06.9 Rheumatoid arthritis, unspecified; Z87.891 Personal history of nicotine dependence; Z98.51 Tubal ligation status; Z90.49 Acquired absence of other specified parts of digestive tract; Z98.890 Other specified postprocedural states; Z79.899 Other long term (current) drug therapy; X58.XXXD Exposure to other specified factors, subsequent encounter ==

== ENCOUNTER → 2023-06-17 | Outpatient (CLI) | payer OTHER, MEDICAID | END | disposition home or self-care (01) | LOC: WOUNDCARE 00:25 | PROVIDERS: ATTEND Nurse Practitioner Family | DX: L89.893 Pressure ulcer of other site, stage 3 (principal); S51.002D Unspecified open wound of left elbow, subsequent encounter; L97.512 Non-pressure chronic ulcer of other part of right foot with fat layer exposed; L97.822 Non-pressure chronic ulcer of other part of left lower leg with fat layer exposed; I13.0 Hypertensive heart and chronic kidney disease with heart failure and stage 1 through stage 4 chronic kidney disease, or unspecified chronic kidney disease; N18.9 Chronic kidney disease, unspecified; I50.9 Heart failure, unspecified; I48.91 Unspecified atrial fibrillation; I73.9 Peripheral vascular disease, unspecified; M06.9 Rheumatoid arthritis, unspecified; J44.9 Chronic obstructive pulmonary disease, unspecified; K58.9 Irritable bowel syndrome, unspecified; K57.90 Diverticulosis of intestine, part unspecified, without perforation or abscess without bleeding; K21.9 Gastro-esophageal reflux disease without esophagitis; Z87.891 Personal history of nicotine dependence; Z90.49 Acquired absence of other specified parts of digestive tract; Z98.51 Tubal ligation status; Z79.899 Other long term (current) drug therapy; X58.XXXD Exposure to other specified factors, subsequent encounter ==

== ENCOUNTER 2023-06-25 14:04 | Emergency (ER) | payer OTHER ==
[~2023-06-25] VITALS: Ht 162.5 cm; Wt 75.7 kg
[~2023-06-25 14:04] MED LIST changes: -AVPAK AZITHROM250 M1 PO; -PREDNISONE20 M1 PO
[2023-06-25 14:13] VITALS: BP 194/86
[2023-06-25] MEDS ORDERED: methylPREDNISolone sod succ 125 MG VIAL IV ONE (14:30)
[2023-06-25] MEDS ORDERED: Albuterol Sulf/Ipratropium 3 ML VIAL NEB ONE (14:30)
[2023-06-25 15:15] LABS: BASO % 0.3 % (0.0-1.0); HEMATOCRIT 33.4 % (37.0-47.0); LYMPH # 0.4 10*3/uL (1.3-4.4); LYMPH % 11.2 % (27.0-41.0); MEAN CELL VOLUME 84.3 fl (81.0-99.0); MEAN CORPUSCULAR HGB 24.2 pg (27.0-31.0); MEAN CORPUSCULAR HGB CONC 28.7 g/dl (33.0-37.0); MEAN PLATELET VOLUME 8.9 fl (9.6-12.3); MONO # 0.1 10*3/uL (0.1-1.0); MONO % 4.1 % (3.0-9.0); NEUT # 2.8 10*3/uL (2.3-7.9); NEUT % 82.9 % (47.0-73.0); PLATELET COUNT AUTOMATED 252 10*3/uL (130-400); RED BLOOD COUNT 3.96 10*6/uL (4.10-5.10); RED CELL DISTRI WIDTH 18.7 % (0-14.5); WHITE BLOOD COUNT 3.4 10*3/uL (4.8-10.8)
[2023-06-25 15:32] LABS: TOTAL PROTEIN 6.7 gm/dL (6.0-8.0)
[2023-06-25 15:36] LABS: ACT PARTIAL THROMBO TIME 30.7 SECONDS (20.0-32.1)
[2023-06-25] MEDS ORDERED: AVPAK AZITHROM250 M1 PO (16:25)
[2023-06-25] MEDS ORDERED: PREDNISONE20 M1 PO (16:25)
[2023-06-25] MEDS ORDERED: AZITHROMYCIN 250 MG TAB PO ONE (16:30)
== END 2023-06-25 16:34 | disposition home or self-care (01) ==
LOC: ED 14:04
PROVIDERS: Nurse Practitioner Family
DX: J44.1 Chronic obstructive pulmonary disease with (acute) exacerbation (principal); M24.411 Recurrent dislocation, right shoulder; Z88.2 Allergy status to sulfonamides; K21.9 Gastro-esophageal reflux disease without esophagitis; D64.9 Anemia, unspecified; E78.5 Hyperlipidemia, unspecified; I13.0 Hypertensive heart and chronic kidney disease with heart failure and stage 1 through stage 4 chronic kidney disease, or unspecified chronic kidney disease; N18.9 Chronic kidney disease, unspecified; I50.9 Heart failure, unspecified; M19.90 Unspecified osteoarthritis, unspecified site; Z98.890 Other specified postprocedural states; Z98.51 Tubal ligation status; F17.210 Nicotine dependence, cigarettes, uncomplicated

== ENCOUNTER → 2023-06-25 | Outpatient (CLI) | payer OTHER, MEDICAID ==
[~2023-06-25] MED LIST changes: +AVPAK AZITHROM250 M1 PO; +PREDNISONE20 M1 PO
== END | disposition home or self-care (01) ==
LOC: WOUNDCARE 03:05
PROVIDERS: ATTEND Nurse Practitioner Family
DX: L89.893 Pressure ulcer of other site, stage 3 (principal); S51.002D Unspecified open wound of left elbow, subsequent encounter; L97.512 Non-pressure chronic ulcer of other part of right foot with fat layer exposed; L97.822 Non-pressure chronic ulcer of other part of left lower leg with fat layer exposed; I13.0 Hypertensive heart and chronic kidney disease with heart failure and stage 1 through stage 4 chronic kidney disease, or unspecified chronic kidney disease; N18.9 Chronic kidney disease, unspecified; I50.9 Heart failure, unspecified; I48.91 Unspecified atrial fibrillation; I73.9 Peripheral vascular disease, unspecified; M06.9 Rheumatoid arthritis, unspecified; J44.9 Chronic obstructive pulmonary disease, unspecified; K58.9 Irritable bowel syndrome, unspecified; K57.90 Diverticulosis of intestine, part unspecified, without perforation or abscess without bleeding; K21.9 Gastro-esophageal reflux disease without esophagitis; Z87.891 Personal history of nicotine dependence; Z90.49 Acquired absence of other specified parts of digestive tract; Z98.51 Tubal ligation status; Z79.899 Other long term (current) drug therapy; X58.XXXD Exposure to other specified factors, subsequent encounter

== ENCOUNTER → 2023-07-02 | Outpatient (CLI) | payer OTHER ==
[~2023-07-02] MED LIST changes: +AVPAK AZITHROM250 M1 PO; +PREDNISONE20 M1 PO
== END | disposition home or self-care (01) ==
LOC: WOUNDCARE 00:41
PROVIDERS: ATTEND Nurse Practitioner Family
DX: L89.893 Pressure ulcer of other site, stage 3 (principal); S51.002D Unspecified open wound of left elbow, subsequent encounter; L97.512 Non-pressure chronic ulcer of other part of right foot with fat layer exposed; L97.822 Non-pressure chronic ulcer of other part of left lower leg with fat layer exposed; I13.0 Hypertensive heart and chronic kidney disease with heart failure and stage 1 through stage 4 chronic kidney disease, or unspecified chronic kidney disease; N18.9 Chronic kidney disease, unspecified; I50.9 Heart failure, unspecified; I48.91 Unspecified atrial fibrillation; I73.9 Peripheral vascular disease, unspecified; M06.9 Rheumatoid arthritis, unspecified; J44.9 Chronic obstructive pulmonary disease, unspecified; K58.9 Irritable bowel syndrome, unspecified; K57.90 Diverticulosis of intestine, part unspecified, without perforation or abscess without bleeding; K21.9 Gastro-esophageal reflux disease without esophagitis; Z87.891 Personal history of nicotine dependence; Z90.49 Acquired absence of other specified parts of digestive tract; Z98.51 Tubal ligation status; Z79.899 Other long term (current) drug therapy; X58.XXXD Exposure to other specified factors, subsequent encounter

== ENCOUNTER → 2023-07-09 | Outpatient (CLI) | payer OTHER | END | disposition home or self-care (01) | LOC: WOUNDCARE 01:32 | PROVIDERS: ATTEND Nurse Practitioner Family | DX: L89.893 Pressure ulcer of other site, stage 3 (principal); S51.002D Unspecified open wound of left elbow, subsequent encounter; L97.512 Non-pressure chronic ulcer of other part of right foot with fat layer exposed; L97.822 Non-pressure chronic ulcer of other part of left lower leg with fat layer exposed; I13.0 Hypertensive heart and chronic kidney disease with heart failure and stage 1 through stage 4 chronic kidney disease, or unspecified chronic kidney disease; N18.9 Chronic kidney disease, unspecified; I50.9 Heart failure, unspecified; I48.91 Unspecified atrial fibrillation; I73.9 Peripheral vascular disease, unspecified; M06.9 Rheumatoid arthritis, unspecified; J44.9 Chronic obstructive pulmonary disease, unspecified; K58.9 Irritable bowel syndrome, unspecified; K57.90 Diverticulosis of intestine, part unspecified, without perforation or abscess without bleeding; K21.9 Gastro-esophageal reflux disease without esophagitis; Z87.891 Personal history of nicotine dependence; Z90.49 Acquired absence of other specified parts of digestive tract; Z98.51 Tubal ligation status; Z79.899 Other long term (current) drug therapy; X58.XXXD Exposure to other specified factors, subsequent encounter ==

== ENCOUNTER → 2023-07-16 | Outpatient (CLI) | payer OTHER | END | disposition home or self-care (01) | LOC: WOUNDCARE 00:39 | PROVIDERS: ATTEND Nurse Practitioner Family | DX: L89.893 Pressure ulcer of other site, stage 3 (principal); S51.002D Unspecified open wound of left elbow, subsequent encounter; L97.512 Non-pressure chronic ulcer of other part of right foot with fat layer exposed; L97.822 Non-pressure chronic ulcer of other part of left lower leg with fat layer exposed; I13.0 Hypertensive heart and chronic kidney disease with heart failure and stage 1 through stage 4 chronic kidney disease, or unspecified chronic kidney disease; N18.9 Chronic kidney disease, unspecified; I50.9 Heart failure, unspecified; I48.91 Unspecified atrial fibrillation; I73.9 Peripheral vascular disease, unspecified; M06.9 Rheumatoid arthritis, unspecified; J44.9 Chronic obstructive pulmonary disease, unspecified; K58.9 Irritable bowel syndrome, unspecified; K57.90 Diverticulosis of intestine, part unspecified, without perforation or abscess without bleeding; K21.9 Gastro-esophageal reflux disease without esophagitis; Z87.891 Personal history of nicotine dependence; Z90.49 Acquired absence of other specified parts of digestive tract; Z98.51 Tubal ligation status; Z79.899 Other long term (current) drug therapy; X58.XXXD Exposure to other specified factors, subsequent encounter ==

== ENCOUNTER → 2023-07-23 | Outpatient (CLI) | payer OTHER | END | disposition home or self-care (01) | LOC: WOUNDCARE 00:44 | PROVIDERS: ATTEND Nurse Practitioner Family | DX: L89.893 Pressure ulcer of other site, stage 3 (principal); S51.002D Unspecified open wound of left elbow, subsequent encounter; L97.512 Non-pressure chronic ulcer of other part of right foot with fat layer exposed; L97.822 Non-pressure chronic ulcer of other part of left lower leg with fat layer exposed; I13.0 Hypertensive heart and chronic kidney disease with heart failure and stage 1 through stage 4 chronic kidney disease, or unspecified chronic kidney disease; N18.9 Chronic kidney disease, unspecified; I50.9 Heart failure, unspecified; I48.91 Unspecified atrial fibrillation; I73.9 Peripheral vascular disease, unspecified; M06.9 Rheumatoid arthritis, unspecified; J44.9 Chronic obstructive pulmonary disease, unspecified; K58.9 Irritable bowel syndrome, unspecified; K57.90 Diverticulosis of intestine, part unspecified, without perforation or abscess without bleeding; K21.9 Gastro-esophageal reflux disease without esophagitis; Z87.891 Personal history of nicotine dependence; Z90.49 Acquired absence of other specified parts of digestive tract; Z98.51 Tubal ligation status; Z79.899 Other long term (current) drug therapy; X58.XXXD Exposure to other specified factors, subsequent encounter ==

== ENCOUNTER → 2023-07-29 | Outpatient (CLI) | payer OTHER | END | disposition home or self-care (01) | LOC: WOUNDCARE 02:26 | PROVIDERS: ATTEND Nurse Practitioner Family | DX: L89.893 Pressure ulcer of other site, stage 3 (principal); S51.002D Unspecified open wound of left elbow, subsequent encounter; L97.512 Non-pressure chronic ulcer of other part of right foot with fat layer exposed; L97.822 Non-pressure chronic ulcer of other part of left lower leg with fat layer exposed; I13.0 Hypertensive heart and chronic kidney disease with heart failure and stage 1 through stage 4 chronic kidney disease, or unspecified chronic kidney disease; N18.9 Chronic kidney disease, unspecified; I50.9 Heart failure, unspecified; I48.91 Unspecified atrial fibrillation; I73.9 Peripheral vascular disease, unspecified; M06.9 Rheumatoid arthritis, unspecified; J44.9 Chronic obstructive pulmonary disease, unspecified; K58.9 Irritable bowel syndrome, unspecified; K57.90 Diverticulosis of intestine, part unspecified, without perforation or abscess without bleeding; K21.9 Gastro-esophageal reflux disease without esophagitis; Z87.891 Personal history of nicotine dependence; Z90.49 Acquired absence of other specified parts of digestive tract; Z98.51 Tubal ligation status; Z79.899 Other long term (current) drug therapy; X58.XXXD Exposure to other specified factors, subsequent encounter ==

== ENCOUNTER → 2023-08-06 | Outpatient (CLI) | payer OTHER ==
[~2023-08-06] MED LIST changes: +AMOX-CLAV 875-1 EACH PO; +ASPERCREME LID1 EACH T
== END | disposition home or self-care (01) ==
LOC: WOUNDCARE 00:59
PROVIDERS: ATTEND Nurse Practitioner Family
DX: L89.893 Pressure ulcer of other site, stage 3 (principal); S51.002D Unspecified open wound of left elbow, subsequent encounter; L02.212 Cutaneous abscess of back [any part, except buttock and flank]; L97.512 Non-pressure chronic ulcer of other part of right foot with fat layer exposed; L97.822 Non-pressure chronic ulcer of other part of left lower leg with fat layer exposed; I13.0 Hypertensive heart and chronic kidney disease with heart failure and stage 1 through stage 4 chronic kidney disease, or unspecified chronic kidney disease; N18.9 Chronic kidney disease, unspecified; I50.9 Heart failure, unspecified; I48.91 Unspecified atrial fibrillation; I73.9 Peripheral vascular disease, unspecified; M06.9 Rheumatoid arthritis, unspecified; J44.9 Chronic obstructive pulmonary disease, unspecified; K58.9 Irritable bowel syndrome, unspecified; K57.90 Diverticulosis of intestine, part unspecified, without perforation or abscess without bleeding; K21.9 Gastro-esophageal reflux disease without esophagitis; Z87.891 Personal history of nicotine dependence; Z90.49 Acquired absence of other specified parts of digestive tract; Z98.51 Tubal ligation status; Z79.899 Other long term (current) drug therapy; X58.XXXD Exposure to other specified factors, subsequent encounter

== ENCOUNTER → 2023-08-12 | Outpatient (CLI) | payer OTHER ==
[~2023-08-12] MED LIST changes: -AMOX-CLAV 875-1 EACH PO; -ASPERCREME LID1 EACH T
== END | disposition home or self-care (01) ==
LOC: WOUNDCARE 00:44
PROVIDERS: ATTEND Nurse Practitioner Primary Care
DX: L89.893 Pressure ulcer of other site, stage 3 (principal); L02.212 Cutaneous abscess of back [any part, except buttock and flank]; S20.4 Other and unspecified superficial injuries of back wall of thorax; L97.512 Non-pressure chronic ulcer of other part of right foot with fat layer exposed; L97.822 Non-pressure chronic ulcer of other part of left lower leg with fat layer exposed; I13.0 Hypertensive heart and chronic kidney disease with heart failure and stage 1 through stage 4 chronic kidney disease, or unspecified chronic kidney disease; N18.9 Chronic kidney disease, unspecified; I50.9 Heart failure, unspecified; I48.91 Unspecified atrial fibrillation; I73.9 Peripheral vascular disease, unspecified; M06.9 Rheumatoid arthritis, unspecified; J44.9 Chronic obstructive pulmonary disease, unspecified; K58.9 Irritable bowel syndrome, unspecified; K57.90 Diverticulosis of intestine, part unspecified, without perforation or abscess without bleeding; K21.9 Gastro-esophageal reflux disease without esophagitis; Z87.891 Personal history of nicotine dependence; Z90.49 Acquired absence of other specified parts of digestive tract; Z98.51 Tubal ligation status; Z79.899 Other long term (current) drug therapy; X58.XXXD Exposure to other specified factors, subsequent encounter

== ENCOUNTER 2023-08-15 10:30 | Emergency (ER) | payer OTHER ==
[~2023-08-15] VITALS: Ht 154.9 cm; Wt 78.0 kg
[2023-08-15 10:48] VITALS: BP 147/75
[2023-08-15 11:29] LABS: BASO % 0.8 % (0.0-1.0); EOS # 0.1 10*3/uL (0.0-0.4); EOS % 2.1 % (1.0-4.0); HEMATOCRIT 33.7 % (37.0-47.0); LYMPH # 0.4 10*3/uL (1.3-4.4); LYMPH % 11.5 % (27.0-41.0); MEAN CELL VOLUME 92.8 fl (81.0-99.0); MEAN CORPUSCULAR HGB 26.2 pg (27.0-31.0); MEAN CORPUSCULAR HGB CONC 28.2 g/dl (33.0-37.0); MEAN PLATELET VOLUME 8.7 fl (9.6-12.3); MONO # 0.3 10*3/uL (0.1-1.0); MONO % 8.9 % (3.0-9.0); NEUT # 2.9 10*3/uL (2.3-7.9); NEUT % 75.7 % (47.0-73.0); PLATELET COUNT AUTOMATED 221 10*3/uL (130-400); RED BLOOD COUNT 3.63 10*6/uL (4.10-5.10); RED CELL DISTRI WIDTH 20.4 % (0-14.5); WHITE BLOOD COUNT 3.8 10*3/uL (4.8-10.8)
[2023-08-15 11:32] LABS: BILIRUBIN Negative (Negative); BLOOD Negative (Negative); CLARITY Clear (Clear); COLOR Yellow (Yellow); GLUCOSE Negative (Negative); KETONE Negative (Negative); LEUKO ESTERASE Negative (Negative); NITRITE Negative (Negative); PH 5.5 (4.5-8.0)
[2023-08-15 11:53] LABS: POTASSIUM 5.6 mmol/L (3.4-5.1); TOTAL PROTEIN 6.1 gm/dL (6.0-8.0)
[2023-08-15] MEDS ORDERED: Lactated Ringer's Solution 1,000 ML IV SCH (12:05)
[2023-08-15 12:09] LABS: RBC 0-2 rbc/hpf (0-2); WBC 0-2 wbc/hpf (0-5)
[2023-08-15] MEDS ORDERED: AMOX-CLAV 875-1 EACH PO (14:40)
[2023-08-15] MEDS ORDERED: ASPERCREME LID1 EACH T (14:40)
== END 2023-08-15 14:49 | disposition home or self-care (01) ==
LOC: ED 10:30
PROVIDERS: Emergency Medicine
DX: K57.32 Diverticulitis of large intestine without perforation or abscess without bleeding (principal); E87.5 Hyperkalemia; I50.9 Heart failure, unspecified; J44.9 Chronic obstructive pulmonary disease, unspecified; K21.9 Gastro-esophageal reflux disease without esophagitis; E87.1 Hypo-osmolality and hyponatremia; I13.0 Hypertensive heart and chronic kidney disease with heart failure and stage 1 through stage 4 chronic kidney disease, or unspecified chronic kidney disease; N18.9 Chronic kidney disease, unspecified; F17.210 Nicotine dependence, cigarettes, uncomplicated; Z88.2 Allergy status to sulfonamides; Z98.51 Tubal ligation status; Z98.890 Other specified postprocedural states

== ENCOUNTER → 2023-08-19 | Outpatient (CLI) | payer OTHER ==
[~2023-08-19] MED LIST changes: +AMOX-CLAV 875-1 EACH PO; +ASPERCREME LID1 EACH T
== END | disposition home or self-care (01) ==
LOC: WOUNDCARE 00:36
PROVIDERS: ATTEND Nurse Practitioner Family
DX: L89.893 Pressure ulcer of other site, stage 3 (principal); L02.212 Cutaneous abscess of back [any part, except buttock and flank]; S20.4 Other and unspecified superficial injuries of back wall of thorax; L97.512 Non-pressure chronic ulcer of other part of right foot with fat layer exposed; L97.822 Non-pressure chronic ulcer of other part of left lower leg with fat layer exposed; I13.0 Hypertensive heart and chronic kidney disease with heart failure and stage 1 through stage 4 chronic kidney disease, or unspecified chronic kidney disease; N18.9 Chronic kidney disease, unspecified; I50.9 Heart failure, unspecified; I48.91 Unspecified atrial fibrillation; I73.9 Peripheral vascular disease, unspecified; M06.9 Rheumatoid arthritis, unspecified; J44.9 Chronic obstructive pulmonary disease, unspecified; K58.9 Irritable bowel syndrome, unspecified; K57.90 Diverticulosis of intestine, part unspecified, without perforation or abscess without bleeding; K21.9 Gastro-esophageal reflux disease without esophagitis; Z87.891 Personal history of nicotine dependence; Z90.49 Acquired absence of other specified parts of digestive tract; Z98.51 Tubal ligation status; Z79.899 Other long term (current) drug therapy; X58.XXXD Exposure to other specified factors, subsequent encounter

== ENCOUNTER → 2023-08-26 | Outpatient (CLI) | payer OTHER, MEDICAID | END | disposition home or self-care (01) | LOC: WOUNDCARE 01:32 | PROVIDERS: ATTEND Nurse Practitioner Family | DX: L89.893 Pressure ulcer of other site, stage 3 (principal); S20.4 Other and unspecified superficial injuries of back wall of thorax; E11.621 Type 2 diabetes mellitus with foot ulcer; L97.512 Non-pressure chronic ulcer of other part of right foot with fat layer exposed; E11.622 Type 2 diabetes mellitus with other skin ulcer; L97.822 Non-pressure chronic ulcer of other part of left lower leg with fat layer exposed; E11.51 Type 2 diabetes mellitus with diabetic peripheral angiopathy without gangrene; E11.22 Type 2 diabetes mellitus with diabetic chronic kidney disease; I13.0 Hypertensive heart and chronic kidney disease with heart failure and stage 1 through stage 4 chronic kidney disease, or unspecified chronic kidney disease; N18.9 Chronic kidney disease, unspecified; I50.9 Heart failure, unspecified; I48.91 Unspecified atrial fibrillation; M06.9 Rheumatoid arthritis, unspecified; J44.9 Chronic obstructive pulmonary disease, unspecified; K58.9 Irritable bowel syndrome, unspecified; K57.90 Diverticulosis of intestine, part unspecified, without perforation or abscess without bleeding; K21.9 Gastro-esophageal reflux disease without esophagitis; Z87.891 Personal history of nicotine dependence; Z90.49 Acquired absence of other specified parts of digestive tract; Z98.51 Tubal ligation status; Z79.899 Other long term (current) drug therapy; X58.XXXD Exposure to other specified factors, subsequent encounter ==

== ENCOUNTER → 2023-09-03 | Outpatient (CLI) | payer OTHER, MEDICAID | END | disposition home or self-care (01) | LOC: WOUNDCARE 00:38 | PROVIDERS: ATTEND Nurse Practitioner Family | DX: L89.893 Pressure ulcer of other site, stage 3 (principal); S20.4 Other and unspecified superficial injuries of back wall of thorax; E11.621 Type 2 diabetes mellitus with foot ulcer; L97.512 Non-pressure chronic ulcer of other part of right foot with fat layer exposed; E11.622 Type 2 diabetes mellitus with other skin ulcer; L97.822 Non-pressure chronic ulcer of other part of left lower leg with fat layer exposed; E11.51 Type 2 diabetes mellitus with diabetic peripheral angiopathy without gangrene; E11.22 Type 2 diabetes mellitus with diabetic chronic kidney disease; I13.0 Hypertensive heart and chronic kidney disease with heart failure and stage 1 through stage 4 chronic kidney disease, or unspecified chronic kidney disease; N18.9 Chronic kidney disease, unspecified; I50.9 Heart failure, unspecified; I48.91 Unspecified atrial fibrillation; M06.9 Rheumatoid arthritis, unspecified; J44.9 Chronic obstructive pulmonary disease, unspecified; K58.9 Irritable bowel syndrome, unspecified; K57.90 Diverticulosis of intestine, part unspecified, without perforation or abscess without bleeding; K21.9 Gastro-esophageal reflux disease without esophagitis; Z87.891 Personal history of nicotine dependence; Z90.49 Acquired absence of other specified parts of digestive tract; Z98.51 Tubal ligation status; Z79.899 Other long term (current) drug therapy; X58.XXXD Exposure to other specified factors, subsequent encounter ==

== ENCOUNTER → 2023-09-03 | Outpatient (CLI) | payer OTHER, MEDICAID ==
[2023-09-03 14:14] LABS: BASO % 0.3 % (0.0-1.0); EOS # 0.1 10*3/uL (0.0-0.4); HEMATOCRIT 31.5 % (37.0-47.0); LYMPH # 0.5 10*3/uL (1.3-4.4); LYMPH % 8.2 % (27.0-41.0); MEAN CELL VOLUME 89.7 fl (81.0-99.0); MEAN CORPUSCULAR HGB 26.2 pg (27.0-31.0); MEAN CORPUSCULAR HGB CONC 29.2 g/dl (33.0-37.0); MEAN PLATELET VOLUME 8.4 fl (9.6-12.3); MONO # 0.5 10*3/uL (0.1-1.0); MONO % 7.8 % (3.0-9.0); NEUT # 4.7 10*3/uL (2.3-7.9); NEUT % 82.2 % (47.0-73.0); PLATELET COUNT AUTOMATED 205 10*3/uL (130-400); RED BLOOD COUNT 3.51 10*6/uL (4.10-5.10); RED CELL DISTRI WIDTH 17.1 % (0-14.5); WHITE BLOOD COUNT 5.8 10*3/uL (4.8-10.8)
[2023-09-03 14:39] LABS: ALKALINE PHOSPHATASE 79 U/L (46-116); BUN 22 mg/dl (9-23); CHLORIDE 108 mmol/L (98-107); POTASSIUM 5.1 mmol/L (3.4-5.1); TOTAL PROTEIN 5.5 gm/dL (6.0-8.0)
[2023-09-03 14:43] LABS: SGPT/ALT < 7 U/L (5-49)
[2023-09-04 06:10] LABS: HEMOGOLBIN A1C 5.3 % (4.8-5.6)
== END | disposition home or self-care (01) ==
LOC: LAB 13:50
PROVIDERS: ATTEND Emergency Medicine
DX: I12.9 Hypertensive chronic kidney disease with stage 1 through stage 4 chronic kidney disease, or unspecified chronic kidney disease (principal); E61.1 Iron deficiency; N18.31 Chronic kidney disease, stage 3a; R73.9 Hyperglycemia, unspecified; M06.9 Rheumatoid arthritis, unspecified; J44.9 Chronic obstructive pulmonary disease, unspecified

== ENCOUNTER → 2023-11-12 | Outpatient (CLI) | payer OTHER, MEDICAID | END | disposition home or self-care (01) | LOC: WOUNDCARE 01:24 | PROVIDERS: ATTEND Nurse Practitioner Family | DX: S90.821A Blister (nonthermal), right foot, initial encounter (principal); L89.890 Pressure ulcer of other site, unstageable; E11.622 Type 2 diabetes mellitus with other skin ulcer; L97.512 Non-pressure chronic ulcer of other part of right foot with fat layer exposed; E11.51 Type 2 diabetes mellitus with diabetic peripheral angiopathy without gangrene; E11.22 Type 2 diabetes mellitus with diabetic chronic kidney disease; I13.0 Hypertensive heart and chronic kidney disease with heart failure and stage 1 through stage 4 chronic kidney disease, or unspecified chronic kidney disease; N18.9 Chronic kidney disease, unspecified; I50.9 Heart failure, unspecified; I48.91 Unspecified atrial fibrillation; M06.9 Rheumatoid arthritis, unspecified; J44.9 Chronic obstructive pulmonary disease, unspecified; K58.9 Irritable bowel syndrome, unspecified; K57.90 Diverticulosis of intestine, part unspecified, without perforation or abscess without bleeding; K21.9 Gastro-esophageal reflux disease without esophagitis; Z87.891 Personal history of nicotine dependence; Z90.49 Acquired absence of other specified parts of digestive tract; Z98.51 Tubal ligation status; Z79.899 Other long term (current) drug therapy; X58.XXXD Exposure to other specified factors, subsequent encounter; X58.XXXA Exposure to other specified factors, initial encounter; Y93.89 Activity, other specified; Y92.89 Other specified places as the place of occurrence of the external cause; Y99.8 Other external cause status ==

== ENCOUNTER → 2023-11-22 | Outpatient (CLI) | payer OTHER, MEDICAID | END | disposition home or self-care (01) | LOC: WOUNDCARE 02:19 | PROVIDERS: ATTEND Nurse Practitioner Family | DX: S90.821D Blister (nonthermal), right foot, subsequent encounter (principal); L89.890 Pressure ulcer of other site, unstageable; E11.622 Type 2 diabetes mellitus with other skin ulcer; L97.512 Non-pressure chronic ulcer of other part of right foot with fat layer exposed; E11.51 Type 2 diabetes mellitus with diabetic peripheral angiopathy without gangrene; E11.22 Type 2 diabetes mellitus with diabetic chronic kidney disease; I13.0 Hypertensive heart and chronic kidney disease with heart failure and stage 1 through stage 4 chronic kidney disease, or unspecified chronic kidney disease; N18.9 Chronic kidney disease, unspecified; I50.9 Heart failure, unspecified; I48.91 Unspecified atrial fibrillation; M06.9 Rheumatoid arthritis, unspecified; J44.9 Chronic obstructive pulmonary disease, unspecified; K58.9 Irritable bowel syndrome, unspecified; K57.90 Diverticulosis of intestine, part unspecified, without perforation or abscess without bleeding; K21.9 Gastro-esophageal reflux disease without esophagitis; Z87.891 Personal history of nicotine dependence; Z90.49 Acquired absence of other specified parts of digestive tract; Z98.51 Tubal ligation status; Z79.899 Other long term (current) drug therapy; X58.XXXD Exposure to other specified factors, subsequent encounter ==

== ENCOUNTER → 2023-11-29 | Outpatient (CLI) | payer OTHER, MEDICAID | END | disposition home or self-care (01) | LOC: WOUNDCARE 03:31 | PROVIDERS: ATTEND Nurse Practitioner Family | DX: S90.821D Blister (nonthermal), right foot, subsequent encounter (principal); L89.890 Pressure ulcer of other site, unstageable; E11.621 Type 2 diabetes mellitus with foot ulcer; L97.512 Non-pressure chronic ulcer of other part of right foot with fat layer exposed; E11.51 Type 2 diabetes mellitus with diabetic peripheral angiopathy without gangrene; E11.22 Type 2 diabetes mellitus with diabetic chronic kidney disease; I13.0 Hypertensive heart and chronic kidney disease with heart failure and stage 1 through stage 4 chronic kidney disease, or unspecified chronic kidney disease; N18.9 Chronic kidney disease, unspecified; I50.9 Heart failure, unspecified; I48.91 Unspecified atrial fibrillation; M06.9 Rheumatoid arthritis, unspecified; J44.9 Chronic obstructive pulmonary disease, unspecified; K58.9 Irritable bowel syndrome, unspecified; K57.90 Diverticulosis of intestine, part unspecified, without perforation or abscess without bleeding; K21.9 Gastro-esophageal reflux disease without esophagitis; Z87.891 Personal history of nicotine dependence; Z90.49 Acquired absence of other specified parts of digestive tract; Z98.51 Tubal ligation status; Z79.899 Other long term (current) drug therapy; X58.XXXD Exposure to other specified factors, subsequent encounter ==

== ENCOUNTER 2023-12-05 10:49 | Emergency (ER) | payer OTHER ==
[~2023-12-05] VITALS: Ht 162.5 cm; Wt 81.2 kg
[2023-12-05 10:59] VITALS: BP 138/66
[2023-12-05] MEDS ORDERED: HYDROmorphONE Hydrochloride 1 MG/ML SYR IM ONE (11:30)
[2023-12-05] MEDS ORDERED: Ketorolac Tromethamine 30 MG/ML VIAL IM ONE (11:35)
== END 2023-12-05 11:50 | disposition home or self-care (01) ==
LOC: ED 10:49
DX: M54.41 Lumbago with sciatica, right side (principal); M25.551 Pain in right hip; I10 Essential (primary) hypertension; K21.9 Gastro-esophageal reflux disease without esophagitis; J44.9 Chronic obstructive pulmonary disease, unspecified; M19.90 Unspecified osteoarthritis, unspecified site; F17.210 Nicotine dependence, cigarettes, uncomplicated; Z88.2 Allergy status to sulfonamides; Z98.51 Tubal ligation status; Z98.890 Other specified postprocedural states

== ENCOUNTER → 2023-12-06 | Outpatient (CLI) | payer OTHER, MEDICAID | END | disposition home or self-care (01) | LOC: WOUNDCARE 02:01 | PROVIDERS: ATTEND Nurse Practitioner Family | DX: L89.893 Pressure ulcer of other site, stage 3 (principal); E11.621 Type 2 diabetes mellitus with foot ulcer; L97.512 Non-pressure chronic ulcer of other part of right foot with fat layer exposed; E11.51 Type 2 diabetes mellitus with diabetic peripheral angiopathy without gangrene; E11.22 Type 2 diabetes mellitus with diabetic chronic kidney disease; I13.0 Hypertensive heart and chronic kidney disease with heart failure and stage 1 through stage 4 chronic kidney disease, or unspecified chronic kidney disease; N18.9 Chronic kidney disease, unspecified; I50.9 Heart failure, unspecified; I48.91 Unspecified atrial fibrillation; M06.9 Rheumatoid arthritis, unspecified; J44.9 Chronic obstructive pulmonary disease, unspecified; K58.9 Irritable bowel syndrome, unspecified; K57.90 Diverticulosis of intestine, part unspecified, without perforation or abscess without bleeding; K21.9 Gastro-esophageal reflux disease without esophagitis; Z87.891 Personal history of nicotine dependence; Z90.49 Acquired absence of other specified parts of digestive tract; Z98.51 Tubal ligation status; Z79.899 Other long term (current) drug therapy ==

== ENCOUNTER 2023-12-10 13:32 | Emergency (ER) | payer OTHER ==
[2023-12-10 14:05] VITALS: BP 140/89
[2023-12-10] MEDS ORDERED: methylPREDNISolone sod succ 125 MG VIAL IM ONE (14:10)
== END 2023-12-10 14:48 | disposition home or self-care (01) ==
LOC: ED 13:32
DX: M54.41 Lumbago with sciatica, right side (principal); M79.604 Pain in right leg; J44.9 Chronic obstructive pulmonary disease, unspecified; K21.9 Gastro-esophageal reflux disease without esophagitis; E87.1 Hypo-osmolality and hyponatremia; D63.1 Anemia in chronic kidney disease; E11.22 Type 2 diabetes mellitus with diabetic chronic kidney disease; I13.0 Hypertensive heart and chronic kidney disease with heart failure and stage 1 through stage 4 chronic kidney disease, or unspecified chronic kidney disease; N18.4 Chronic kidney disease, stage 4 (severe); I50.9 Heart failure, unspecified; E11.65 Type 2 diabetes mellitus with hyperglycemia; E87.5 Hyperkalemia; M19.90 Unspecified osteoarthritis, unspecified site; F17.210 Nicotine dependence, cigarettes, uncomplicated; Z88.2 Allergy status to sulfonamides; Z98.51 Tubal ligation status; Z98.890 Other specified postprocedural states

== ENCOUNTER → 2023-12-10 | Outpatient (CLI) | payer OTHER, MEDICAID | END | disposition home or self-care (01) | LOC: WOUNDCARE 01:45 | PROVIDERS: ATTEND Nurse Practitioner Family | DX: L89.893 Pressure ulcer of other site, stage 3 (principal); E11.621 Type 2 diabetes mellitus with foot ulcer; L97.512 Non-pressure chronic ulcer of other part of right foot with fat layer exposed; E11.51 Type 2 diabetes mellitus with diabetic peripheral angiopathy without gangrene; E11.22 Type 2 diabetes mellitus with diabetic chronic kidney disease; I13.0 Hypertensive heart and chronic kidney disease with heart failure and stage 1 through stage 4 chronic kidney disease, or unspecified chronic kidney disease; N18.9 Chronic kidney disease, unspecified; I50.9 Heart failure, unspecified; I48.91 Unspecified atrial fibrillation; M06.9 Rheumatoid arthritis, unspecified; J44.9 Chronic obstructive pulmonary disease, unspecified; K58.9 Irritable bowel syndrome, unspecified; K57.90 Diverticulosis of intestine, part unspecified, without perforation or abscess without bleeding; K21.9 Gastro-esophageal reflux disease without esophagitis; Z87.891 Personal history of nicotine dependence; Z90.49 Acquired absence of other specified parts of digestive tract; Z98.51 Tubal ligation status; Z79.899 Other long term (current) drug therapy ==

== ENCOUNTER → 2023-12-17 | Outpatient (CLI) | payer OTHER | END | disposition home or self-care (01) | LOC: WOUNDCARE 00:55 | PROVIDERS: ATTEND Nurse Practitioner Family | DX: L89.893 Pressure ulcer of other site, stage 3 (principal); E11.621 Type 2 diabetes mellitus with foot ulcer; L97.512 Non-pressure chronic ulcer of other part of right foot with fat layer exposed; E11.51 Type 2 diabetes mellitus with diabetic peripheral angiopathy without gangrene; E11.22 Type 2 diabetes mellitus with diabetic chronic kidney disease; I13.0 Hypertensive heart and chronic kidney disease with heart failure and stage 1 through stage 4 chronic kidney disease, or unspecified chronic kidney disease; N18.9 Chronic kidney disease, unspecified; I50.9 Heart failure, unspecified; I48.91 Unspecified atrial fibrillation; M06.9 Rheumatoid arthritis, unspecified; J44.9 Chronic obstructive pulmonary disease, unspecified; K58.9 Irritable bowel syndrome, unspecified; K57.90 Diverticulosis of intestine, part unspecified, without perforation or abscess without bleeding; K21.9 Gastro-esophageal reflux disease without esophagitis; Z87.891 Personal history of nicotine dependence; Z90.49 Acquired absence of other specified parts of digestive tract; Z98.51 Tubal ligation status; Z79.899 Other long term (current) drug therapy ==

== ENCOUNTER → 2023-12-24 | Outpatient (CLI) | payer OTHER | END | disposition home or self-care (01) | LOC: WOUNDCARE 01:29 | PROVIDERS: ATTEND Nurse Practitioner Family | DX: L89.893 Pressure ulcer of other site, stage 3 (principal); L97.512 Non-pressure chronic ulcer of other part of right foot with fat layer exposed; I13.0 Hypertensive heart and chronic kidney disease with heart failure and stage 1 through stage 4 chronic kidney disease, or unspecified chronic kidney disease; N18.9 Chronic kidney disease, unspecified; I50.9 Heart failure, unspecified; I73.9 Peripheral vascular disease, unspecified; I48.91 Unspecified atrial fibrillation; M06.9 Rheumatoid arthritis, unspecified; J44.9 Chronic obstructive pulmonary disease, unspecified; K58.9 Irritable bowel syndrome, unspecified; K57.90 Diverticulosis of intestine, part unspecified, without perforation or abscess without bleeding; K21.9 Gastro-esophageal reflux disease without esophagitis; Z87.891 Personal history of nicotine dependence; Z90.49 Acquired absence of other specified parts of digestive tract; Z98.51 Tubal ligation status; Z79.899 Other long term (current) drug therapy ==

== ENCOUNTER → 2023-12-31 | Outpatient (CLI) | payer OTHER | END | disposition home or self-care (01) | LOC: WOUNDCARE 02:29 | PROVIDERS: ATTEND Nurse Practitioner Family | DX: L89.893 Pressure ulcer of other site, stage 3 (principal); L97.512 Non-pressure chronic ulcer of other part of right foot with fat layer exposed; I13.0 Hypertensive heart and chronic kidney disease with heart failure and stage 1 through stage 4 chronic kidney disease, or unspecified chronic kidney disease; N18.9 Chronic kidney disease, unspecified; I50.9 Heart failure, unspecified; I73.9 Peripheral vascular disease, unspecified; J44.9 Chronic obstructive pulmonary disease, unspecified; I48.91 Unspecified atrial fibrillation; K21.9 Gastro-esophageal reflux disease without esophagitis; M06.9 Rheumatoid arthritis, unspecified; Z87.891 Personal history of nicotine dependence ==

== ENCOUNTER → 2024-01-01 | Outpatient (CLI) | payer OTHER | END | disposition home or self-care (01) | LOC: WOUNDCARE 11:17 | PROVIDERS: ATTEND Nurse Practitioner Family | DX: L89.893 Pressure ulcer of other site, stage 3 (principal); L97.512 Non-pressure chronic ulcer of other part of right foot with fat layer exposed; I73.9 Peripheral vascular disease, unspecified; I13.0 Hypertensive heart and chronic kidney disease with heart failure and stage 1 through stage 4 chronic kidney disease, or unspecified chronic kidney disease; I50.9 Heart failure, unspecified; N18.9 Chronic kidney disease, unspecified; K21.9 Gastro-esophageal reflux disease without esophagitis; M06.9 Rheumatoid arthritis, unspecified; J44.9 Chronic obstructive pulmonary disease, unspecified; I48.91 Unspecified atrial fibrillation; Z87.891 Personal history of nicotine dependence ==

== ENCOUNTER → 2024-01-07 | Outpatient (CLI) | payer OTHER | END | disposition home or self-care (01) | LOC: WOUNDCARE 00:55 | PROVIDERS: ATTEND Nurse Practitioner Family | DX: L89.893 Pressure ulcer of other site, stage 3 (principal); L97.512 Non-pressure chronic ulcer of other part of right foot with fat layer exposed; I13.0 Hypertensive heart and chronic kidney disease with heart failure and stage 1 through stage 4 chronic kidney disease, or unspecified chronic kidney disease; N18.9 Chronic kidney disease, unspecified; I50.9 Heart failure, unspecified; I48.91 Unspecified atrial fibrillation; I73.9 Peripheral vascular disease, unspecified; M06.9 Rheumatoid arthritis, unspecified; J44.9 Chronic obstructive pulmonary disease, unspecified; K58.9 Irritable bowel syndrome, unspecified; K21.9 Gastro-esophageal reflux disease without esophagitis; K57.90 Diverticulosis of intestine, part unspecified, without perforation or abscess without bleeding; Z87.891 Personal history of nicotine dependence; Z90.49 Acquired absence of other specified parts of digestive tract; Z98.51 Tubal ligation status; Z79.899 Other long term (current) drug therapy ==

== ENCOUNTER → 2024-01-15 | Outpatient (CLI) | payer OTHER | END | disposition home or self-care (01) | LOC: WOUNDCARE 01:10 | PROVIDERS: ATTEND Nurse Practitioner Family | DX: L89.893 Pressure ulcer of other site, stage 3 (principal); L97.512 Non-pressure chronic ulcer of other part of right foot with fat layer exposed; I73.9 Peripheral vascular disease, unspecified; J44.9 Chronic obstructive pulmonary disease, unspecified; I48.91 Unspecified atrial fibrillation; I13.0 Hypertensive heart and chronic kidney disease with heart failure and stage 1 through stage 4 chronic kidney disease, or unspecified chronic kidney disease; I50.9 Heart failure, unspecified; N18.9 Chronic kidney disease, unspecified; K21.9 Gastro-esophageal reflux disease without esophagitis; M06.9 Rheumatoid arthritis, unspecified; Z87.891 Personal history of nicotine dependence ==

== ENCOUNTER → 2024-01-24 | Outpatient (CLI) | payer OTHER | END | disposition home or self-care (01) | LOC: WOUNDCARE 02:15 | PROVIDERS: ATTEND Nurse Practitioner Family | DX: L89.893 Pressure ulcer of other site, stage 3 (principal); L97.512 Non-pressure chronic ulcer of other part of right foot with fat layer exposed; I13.0 Hypertensive heart and chronic kidney disease with heart failure and stage 1 through stage 4 chronic kidney disease, or unspecified chronic kidney disease; N18.9 Chronic kidney disease, unspecified; I50.9 Heart failure, unspecified; M06.9 Rheumatoid arthritis, unspecified; I73.9 Peripheral vascular disease, unspecified; I48.91 Unspecified atrial fibrillation; J44.9 Chronic obstructive pulmonary disease, unspecified; K58.9 Irritable bowel syndrome, unspecified; K21.9 Gastro-esophageal reflux disease without esophagitis; K57.90 Diverticulosis of intestine, part unspecified, without perforation or abscess without bleeding; Z87.891 Personal history of nicotine dependence; Z90.49 Acquired absence of other specified parts of digestive tract; Z98.51 Tubal ligation status; Z79.899 Other long term (current) drug therapy ==

== ENCOUNTER → 2024-01-29 | Outpatient (CLI) | payer OTHER | LOC: WOUNDCARE 02:58 | PROVIDERS: ATTEND Nurse Practitioner Family | DX: Z53.21 Procedure and treatment not carried out due to patient leaving prior to being seen by health care provider (principal) ==